=== PATIENT | female | born 1995 | race Caucasian/White ===

== ENCOUNTER 2017-10-13 02:38 | Emergency (ER) ==
[2017-10-13 02:46] VITALS: BP 117/77; TEMP 98.6; BMI 27.9
--- NOTE | 2017-10-13 06:11 | ED.PDOC ---
General ED Provider: Dr. LILIA CARTY-ER Chief Complaint: Non-specific Complaint Stated Complaint: she was at a motel and not acting right--she is doing drugs Time Seen by Physician: 02:40 Mode of Arrival: Walk-In Information Source: Patient, Family Exam Limitations: No limitations Nursing and Triage Documentation Reviewed and Agree: Yes Reviewed sepsis parameters & appropriate labs ordered?: Yes System Inflammatory Response Syndrome: Not Applicable Sepsis Protocol: For patient's 13 years and over: Temp is 96.8 and below OR 101 and greater Pulse >90 BPM Resp >20/minute Acutely Altered Mental Status Are patient's symptoms suggestive of a new infection, such as: -Pneumonia -Skin, Soft Tissue -Endocarditis -UTI -Bone, Joint Infection -Implantable Device -Acute Abdominal Infection -Wound Infection -Meningitis -Blood Stream Catheter Infection -Unknown Neurological Complaint Exam - Altered Mental Status Complaint/Exam Current Mental Status: Confusion Last Known Well: 24 hrs Onset: Sudden Symptoms Are: Still present Episodes Lasting: Hours Initial Severity: Mild Current Severity: Mild Eye Deviation Present: No Character: Reports: Confusion Aggravating: Reports: Drug abuse Alleviating: Reports: None Associated Signs and Symptoms: Denies: Dizziness, Weakness, Headache, Fever, Illness, Nuchal rigidity, Seizure, Nausea, Vomiting, Recently depressed, Trauma Related Surgical History: Reports: None Carotid Bruit Present: No Nystagmus Present: No Gag Reflex Present: Yes Meningeal Signs Positive: No Focal Weakness: Present: None Focal Sensory Loss: Present: None Gait: Normal [id number]: Normal Findings Romberg Test Positive: No Babinski Sign: Negative Right, Negative Left Heel to Toe Normal: Yes Signs of Injury: Present: Normal findings Thrombolytics Considered: No Differential Diagnoses: Medication reaction, Other Review of Systems - Review Of Systems Constitutional: Reports: No symptoms Eyes: Reports: No symptoms Ears, Nose, Mouth, Throat: Reports: No symptoms Respiratory: Reports: No symptoms Cardiac: Reports: No symptoms GI: Reports: No symptoms : Reports: No symptoms Musculoskeletal: Reports: No symptoms Skin: Reports: No symptoms Neurological: Reports: Cognitive dysfunction Endocrine: Reports: No symptoms Hematologic/Lymphatic: Reports: No symptoms All Other Systems: Reviewed and Negative Past Medical History - Past Medical History Previously Healthy: Yes Endocrine: Reports: Unknown Cardiovascular: Reports: Unknown Respiratory: Reports: Unknown Hematological: Reports: Unknown Gastrointestinal: Reports: Unknown Genitourinary: Reports: Unknown Neuro/Psych: Reports: Unknown Musculoskeletal: Reports: Unknown Cancer: Reports: Unknown Last Menstrual Period: UNKNOWN - Surgical History General Surgical History: Reports: Unknown - Family History Family History: Reports: Unknown - Social History Smoking Status: Current every day smoker, Heavy tobacco smoker Hx Substance Use: Yes (METH, MARIJUANA, SPICE) Alcohol Screening: Occasionally Lives: With family - Immunizations Tetanus Shot up to Date: Yes Physical Exam - Physical Exam Appearance: Well-appearing, No pain distress, Well-nourished Eyes: NAYELI, EOMI, Conjunctiva clear ENT: Ears normal, Nose normal, Oropharynx normal Neck: Supple Respiratory: Airway patent, Breath sounds clear, Breath sounds equal, Respirations nonlabored Cardiovascular: RRR, Pulses normal, No rub, No murmur GI/: Soft, Nontender, No masses, Bowel sounds normal, No Organomegaly Musculoskeletal: Normal strength, ROM intact, No edema, No calf tenderness Skin: Warm, Dry, Normal color Neurological: Alert, Disoriented Psychiatric: Affect appropriate, Mood appropriate Interpretation - Radiology Interpretation Radiology Interpretation By: Radiologist Radiology Results: Negative Exam Interpreted: CT Scan Re-Evaluation - Re-Evaluation Time of Re-Evaluation: 07:23 Status: Improved Vital Signs Stable: Yes Pain Level: 0 Appearance: NAD Lungs: Clear Skin: Warm and Dry Neuro: Alert and Oriented X3 CV: RRR Critical Care Note - Critical Care Note Total Time (mins): 0 Course - Course Hematology/Chemistry: 10/13/17 03:05 10/13/17 03:05 Orders, Labs, Meds: Lab Review 10/13/17 10/13/17 10/13/17 02:50 02:50 03:05 WBC 14.87 H RBC 4.04 L Hgb 13.2 Hct 37.0 MCV 91.6 MCH 32.7 H MCHC 35.7 H RDW Coeff of Leona 13.4 Plt Count 231 Immature Gran % (Auto) 0.4 Neut % (Auto) 66.9 Lymph % (Auto) 21.1 [place] % (Auto) 10.7 H Eos % (Auto) 0.5 Baso % (Auto) 0.4 Immature Gran # (Auto) 0.1 Neut # (Auto) 10.0 H Lymph # (Auto) 3.1 [place] # (Auto) 1.6 Eos # (Auto) 0.1 Baso # (Auto) 0.1 Sodium Potassium Chloride Carbon Dioxide Anion Gap BUN Creatinine Estimated GFR (MDRD) BUN/Creatinine Ratio Glucose Calcium Total Bilirubin AST ALT Alkaline Phosphatase Total Protein Albumin Globulin Albumin/Globulin Ratio Serum , Qual Urine Color Yellow Urine Clarity Cloudy Urine pH 6.0 Ur Specific [place] 1.025 Urine Protein Trace Urine Glucose (UA) Negative Urine Ketones 1+ Urine Blood 2+ Urine Nitrite Positive Urine Bilirubin Negative Urine Urobilinogen 1.0 Ur Leukocyte Esterase 1+ Urine Microscopic RBC 2-5 Urine Microscopic WBC 2-5 Ur Squamous Epith Cells 5-10 Calcium Oxalate Crystal Trace Amorphous Sediment 2+ Urine Bacteria Trace Salicylate Level mg/dL Urine Opiates Screen Negative Ur Oxycodone Screen Negative Urine Methadone Screen Negative Ur Propoxyphene Screen Negative Acetaminophen Ur Barbiturates Screen Negative U Tricyclic Antidepress Negative Ur Phencyclidine Scrn Negative Ur Amphetamine Screen Positive U Methamphetamines Scrn Negative U Benzodiazepines Scrn Negative Urine Cocaine Screen Negative U Cannabinoids Screen Positive Plasma/Serum Alcohol 10/13/17 10/13/17 03:05 03:05 WBC RBC Hgb Hct MCV MCH MCHC RDW Coeff of [place] Plt Count Immature Gran % (Auto) Neut % (Auto) Lymph % (Auto) [place] % (Auto) Eos % (Auto) Baso % (Auto) Immature Gran # (Auto) Neut # (Auto) Lymph # (Auto) [place] # (Auto) Eos # (Auto) Baso # (Auto) Sodium 138 Potassium 3.3 L Chloride 105 Carbon Dioxide 23 Anion Gap 13.3 BUN 14 Creatinine 0.80 Estimated GFR (MDRD) 91.00 BUN/Creatinine Ratio 17.50 Glucose 96 Calcium 9.6 Total Bilirubin 1.3 H AST 25 ALT 19 Alkaline Phosphatase 65 Total Protein 7.7 Albumin 4.5 Globulin 3.2 Albumin/Globulin Ratio 1.41 Serum , Qual Negative Urine Color Urine Clarity Urine pH Ur Specific [place] Urine Protein Urine Glucose (UA) Urine Ketones Urine Blood Urine Nitrite Urine Bilirubin Urine Urobilinogen Ur Leukocyte Esterase Urine Microscopic RBC Urine Microscopic WBC Ur Squamous Epith Cells Calcium Oxalate Crystal Amorphous Sediment Urine Bacteria Salicylate Level mg/dL < 5.0 Urine Opiates Screen Ur Oxycodone Screen Urine Methadone Screen Ur Propoxyphene Screen Acetaminophen < 3 L Ur Barbiturates Screen U Tricyclic Antidepress Ur Phencyclidine Scrn Ur Amphetamine Screen U Methamphetamines Scrn U Benzodiazepines Scrn Urine Cocaine Screen U Cannabinoids Screen Plasma/Serum Alcohol < 10.0 Orders Category Date Time Status ACETAMINOPHEN Stat LAB 10/13/17 03:05 Completed BLOOD ALCOHOL Stat LAB 10/13/17 03:05 Completed CBC W/ AUTO DIFF Stat LAB 10/13/17 03:05 Completed COMPREHENSIVE METABOLIC PANEL Stat LAB 10/13/17 03:05 Completed DRUG SCREEN, URINE, RAPID Stat LAB 10/13/17 02:50 Completed SALICYLATE Stat LAB 10/13/17 03:05 Completed SERUM Stat LAB 10/13/17 03:05 Completed URINALYSIS C & S IF INDICATED Stat LAB 10/13/17 02:[address] HEAD W/O CONTRAST Stat RADS 10/13/17 04:08 Completed Vital Signs: Temp Pulse Resp BP Pulse Ox 10/13/17 02:39 98.6 F 119 H 22 117/77 99 Departure - Departure Time of Disposition: 07:23 Disposition: HOME SELF-CARE Discharge Problem: Substance abuse Instructions: Polysubstance Abuse (ED) Condition: Good Pt referred to PMD for follow-up: Yes IPMP verified?: No Additional Instructions: talk to pmd about referral for substance abuse Allergies/Adverse Reactions: Allergies No Known Allergies Allergy (Unverified 02/26/14 15:39) Home Medications: Ambulatory Orders 1 [No Reported Medications] 10/13/17 Disposition Discussed With: Patient, Family
--- NOTE | 2017-10-13 07:21 | CT ---
EXAM: CT head without contrast. HISTORY: Altered mental status. COMPARISON: None available. TECHNIQUE: Multiple axial images of the brain were obtained from the skull base through the vertex w ithout intravenous contrast. Multiplanar reformats were provided. FINDINGS: There is no intracranial hemorrhage or extraaxial collection. The lees-white differentiat ion is maintained without evidence for acute large vascular territory infarction. The cortical sulci and basal cisterns are well visualized. There is no hydrocephalus, mass effect, or midline shift. Polypoid soft tissue is partially visualized in the right maxillary sinus, possibly a polyp or retent ion cyst. Otherwise, the paranasal sinuses and mastoid air cells are clear. The calvarium is intact . IMPRESSION: No acute intracranial abnormality.
== END 2017-10-13 08:42 | disposition home or self-care (01) ==
LOC: ED 02:38
DX: F19.10 Other psychoactive substance abuse, uncomplicated (principal); R41.82 Altered mental status, unspecified; F17.210 Nicotine dependence, cigarettes, uncomplicated
CPT/HCPCS: 36415; 80053; 80306; 80307; 81001; 84703; 85025; 99283

== ENCOUNTER 2017-11-28 12:41 | Outpatient (CLI) | END 2017-11-28 12:42 | disposition home or self-care (01) | LOC: FCC-LAB 12:41 | PROVIDERS: ATTEND Family Medicine | DX: N89.8 Other specified noninflammatory disorders of vagina (principal); Z11.3 Encounter for screening for infections with a predominantly sexual mode of transmission; Z87.898 Personal history of other specified conditions | CPT/HCPCS: 36415; 80053; 81001; 86592; 86695; 86696; 86803; 87389; 87800 ==

== ENCOUNTER 2018-08-03 11:45 | Emergency (ER) ==
[2018-08-03 11:51] VITALS: BP 130/81; TEMP 97.1; BMI 31.8
--- NOTE | 2018-08-03 12:12 | ED.PDOC ---
General ED Provider: Dr. AZUCENA ORTA Chief Complaint: Respiratory Complaint Stated Complaint: cough, congestion in a 6 week female not short of air in E.D. TODAY FOR FLU LIKE SYMPTOMS Time Seen by Physician: 12:00 (PRESENT RENATO MCKENZIE E.Pina DIRECTOR AT ALL TIMES ) Mode of Arrival: Walk-In Information Source: Patient Exam Limitations: No limitations Nursing and Triage Documentation Reviewed and Agree: Yes Does patient meet sepsis criteria?: No System Inflammatory Response Syndrome: Not Applicable Sepsis Protocol: For patient's 13 years and over: Temp is 96.8 and below OR 101 and greater Pulse >90 BPM Resp >20/minute Acutely Altered Mental Status Are patient's symptoms suggestive of a new infection, such as: -Pneumonia -Skin, Soft Tissue -Endocarditis -UTI -Bone, Joint Infection -Implantable Device -Acute Abdominal Infection -Wound Infection -Meningitis -Blood Stream Catheter Infection -Unknown Review of Systems - Review Of Systems Constitutional: Reports: Chills, Malaise Eyes: Reports: No symptoms Ears, Nose, Mouth, Throat: Reports: No symptoms Respiratory: Reports: Cough Cardiac: Reports: No symptoms GI: Reports: No symptoms : Reports: No symptoms Musculoskeletal: Reports: No symptoms Skin: Reports: No symptoms Neurological: Reports: No symptoms Endocrine: Reports: No symptoms Hematologic/Lymphatic: Reports: No symptoms All Other Systems: Reviewed and Negative Past Medical History - Past Medical History Previously Healthy: Yes Endocrine: Reports: Unknown Cardiovascular: Reports: Unknown Respiratory: Reports: Unknown Hematological: Reports: Unknown Gastrointestinal: Reports: Unknown Genitourinary: Reports: Unknown Neuro/Psych: Reports: Unknown Musculoskeletal: Reports: Unknown Cancer: Reports: Unknown Last Menstrual Period: January 2018 - Surgical History General Surgical History: Reports: Unknown - Family History Family History: Reports: Unknown - Social History Smoking Status: Former smoker Hx Substance Use: No Alcohol Screening: None - Immunizations Tetanus Shot up to Date: Yes Physical Exam - Physical Exam Appearance: Well-appearing Ill-appearing: Mild Eyes: NAYELI, EOMI, Conjunctiva clear ENT: Ears normal, Nose normal, Oropharynx normal Respiratory: Airway patent, Breath sounds clear, Breath sounds equal, Respirations nonlabored Cardiovascular: RRR, Pulses normal, No rub, No murmur GI/: Soft, Nontender, No masses, Bowel sounds normal, No Organomegaly Musculoskeletal: Normal strength, ROM intact, No edema, No calf tenderness Skin: Warm, Dry, Normal color Neurological: Sensation intact, Motor intact, Reflexes intact, Cranial nerves intact, Alert, Oriented Psychiatric: Affect appropriate, Mood appropriate Re-Evaluation - Re-Evaluation Time of Re-Evaluation: 13:33 (SEEN WITH NURSE US AND FLU TEST WERE REPORTED IN NO PAIN ) Status: Improved Vital Signs Stable: Yes Pain Level: 0 Appearance: NAD Lungs: Clear Skin: Warm and Dry Neuro: Alert and Oriented X3 CV: RRR Additional Comments: COPIES OF ALL TESTING GIVEN TO THE PT , ALSO PRESENT WERE BROOK Critical Care Note - Critical Care Note Total Time (mins): 0 Course - Course Hematology/Chemistry: 08/03/18 12:20 Orders, Labs, Meds: Orders Category Date Time Status BLOOD CULTURE (ED ONLY) Stat LAB 08/03/18 12:09 Ordered CBC W/ AUTO DIFF Stat LAB 08/03/18 12:09 Ordered COMPREHENSIVE METABOLIC PANEL Stat LAB 08/03/18 12:09 Ordered FLU A/B MOLECULAR Stat LAB 08/03/18 12:00 Received RAPID STREP SCREEN [MOLECULAR GROUP A STREP] Stat LAB 08/03/18 12:00 Received URINALYSIS C & S IF INDICATED Stat LAB 08/03/18 12:09 Uncollected Vital Signs: Temp Pulse Resp BP Pulse Ox 08/03/18 11:47 97.1 F L 106 H 16 130/81 97 Departure - Departure Time of Disposition: 14:00 Disposition: HOME SELF-CARE Discharge Problem: Viral syndrome Instructions: Viral Syndrome (ED) Condition: Good Pt referred to PMD for follow-up: Yes IPMP verified?: No Additional Instructions: Please call your Family Physician as soon as possible to schedule a follow-up appointment. Allergies/Adverse Reactions: Allergies No Known Allergies Allergy (Verified 08/03/18 11:51) Home Medications: Ambulatory Orders Comb No.42/Folic Acid [Prena1 Chew Tablet] 1 tab PO DAILY 08/03/18 Disposition Discussed With: Patient
== END 2018-08-03 13:55 | disposition home or self-care (01) ==
LOC: ED 11:45
DX: B34.9 Viral infection, unspecified (principal); Z33.1 Pregnant state, incidental
CPT/HCPCS: 36415; 80053; 81001; 85025; 87040; 87086; 87502; 87651; 99283